=== PATIENT | male | born 1960 | race Caucasian/White ===

== ENCOUNTER 2018-07-06 06:20 | Day surgery (SDC) | payer MEDICAID ==
[2018-06-30 08:00] VITALS: BMI 36.2
--- NOTE | 2018-07-05 20:59 | HP ---
DATE OF EXAM: 07/05/2018 REASON FOR ADMISSION: Left heart catheterization possible angioplasty, abnormal stress test, unstable angina. BRIEF CLINICAL HISTORY: This is a 58-year-old male with past medical history significant for hypertension complaining of chest pain, dyspnea on exertion. After tobacco abuse half-a-pack a day, claimed that he walks 2 blocks, get chest pain, tightness in chest, and relieved by stopping No chest pain at rest. The patient went to see Dr. Matti Negron and had a stress test at [facility] dated 06/14/2018, that is abnormal, the patient is scheduled for elective cardiac cath, so the patient came for second opinion. After discussion, the patient is scheduled for elective cardiac cath possible angioplasty. PAST MEDICAL HISTORY: Significant for angina, hypertension. SOCIAL HISTORY: Active tobacco smoker, half-a-pack a day. CURRENT MEDICATIONS: The patient is taking isosorbide nitrate 30 mg daily, carvedilol 25 mg twice a day, baby aspirin 81 mg daily. RECENT CARDIAC WORKUP FOLLOWS: The patient had stress test dated 06/12/2018 that was Lexiscan and that showed abnormal myocardial perfusion study, large reversible perfusion defect in the apical anterior wall significant for ischemia, ejection fraction reported 77% dated 06/12/2018 signed on 06/14/[address] Negron. The patient had also echocardiography on 06/12/2018 at [facility] that showed borderline concentric LVH, ejection fraction 65% to 70%, grade 1 diastolic dysfunction, [id number] pulmonary hypertension, RV systolic pressure reported 56. REVIEW OF SYSTEMS: As per HPI. PHYSICAL EXAMINATION: VITAL SIGNS: Height of the patient 5 feet 11 inches, weight of the patient 260 pounds, body mass index 37 kg/m2. Temperature afebrile, heart rate 60, blood pressure 130/80. HEENT: PERRLA. Extraocular muscles are intact. NECK: Supple. No carotid bruits or thyromegaly. CHEST: Clear to auscultation. HEART: S1 and S2 regular. ABDOMEN: Soft. EXTREMITIES: Clubbing and cyanosis negative. LABORATORY DATA: Blood workup pending. IMPRESSION: This is a 58-year-old male with past medical history of hypertension, active tobacco abuse, abnormal stress test, large apical defect suggestive of ischemia. RECOMMENDATION: We will do the cardiac catheterization. Further recommendation after the cardiac catheterization. Trace tricuspid regurgitation noted. RV systolic pressure of 50. We will load with aspirin and Plavix, wait for the blood workup. If blood workup is okay, we will proceed for cardiac catheterization. Risks, benefits, and alternatives were discussed with the patient. The patient agreed. We will proceed for cardiac catheterization. Further recommendations after cardiac catheterization. Thank you Dr. Macdonald/ Shannan, for providing us the opportunity in taking care of the patient, Janay Jacome. Aline Ochoa MD JERSON
[2018-07-06 07:05] LABS: BASO # 0.09 K/mm3 (0.0-2.0); BASO % 1.2 % (0.0-3.0); EOS # 0.4 (0.0-0.7); EOS % 5.1 % (1.5-5.0); GRAN # 3.14 (1.4-6.5); HEMOGLOBIN 16.6 g/dL (14.0-18.0); LYMPH # 3.4 (1.2-3.4); LYMPH % 44.1 % (22.0-35.0); MEAN CELL VOLUME 83.7 fl (80.0-105.0); MEAN CORPUSCULAR HEMOGLOBIN 28.7 pg (25.0-35.0); MEAN CORPUSCULAR HGB CONC 34.3 g/dl (31.0-37.0); MEAN PLATELET VOLUME 10.3 fl (7.0-11.0); MONO # 0.7 (0.1-0.6); MONO % 8.6 % (1.0-6.0); RBC 5.78 10^6/uL (3.5-6.1); RED CELL DISTRIBUTION WIDTH 13.9 % (11.5-14.5); WHITE BLOOD COUNT 7.7 10^3/uL (4.5-11.0)
[2018-07-06 07:14] VITALS: O2SAT 96
[2018-07-06 07:15] LABS: INR 1.2; PARTIAL THROMBOPLASTIN TIME 37.8 Seconds (26.9-38.3); PROTHROMBIN TIME 13.6 SECONDS (9.4-12.5)
[2018-07-06 07:17] LABS: BLOOD UREA NITROGEN 15 mg/dL (7-21); CALCIUM 9.6 mg/dL (8.4-10.5); GFR NON-AFRICAN AMERICAN > 60; HDL CHOLESTEROL 23 mg/dL (29-60)
[2018-07-06 07:27] LABS: LDL CHOLESTEROL 83 mg/dL (0-129)
[2018-07-06] MEDS ORDERED: Nitroglycerin 50mg in D5W 50 MG/250 ML BOTTLE IV ONE (08:25)
[2018-07-06] MEDS ORDERED: Verapamil 2 ML ONE (08:25)
[2018-07-06] MEDS ORDERED: Iohexol 350 MG/100 ML VIAL ONE (08:25)
[2018-07-06] MEDS ORDERED: Iohexol 350mgl/ml 50 ML ONE (08:25)
[2018-07-06] MEDS ORDERED: Lidocaine 2% Inj (20ml) ONE (08:25)
[2018-07-06] MEDS ORDERED: Phenylephrine 10 mg/ml Inj ONE (08:26)
[2018-07-06] MEDS ORDERED: Midazolam 2 MG/2 ML VIAL ONE (08:49)
[2018-07-06] MEDS ORDERED: Eptifibatide 20 mg/10mL Inj IVP ONE (09:10)
[2018-07-06] MEDS ORDERED: Iodixanol 320 MG/ML 100 ML BOTTLE IV ONE (09:44)
[2018-07-06] MEDS ORDERED: Sodium Chloride 0.9% 1,000 ML IV SCH (10:30)
--- NOTE | 2018-07-06 11:00 | CPOSTOP ---
DATE: 07/06/2018 CARDIOVASCULAR LAB POSTPROCEDURE NOTE PHYSICIAN: Dr. Evin Ochoa. ELECTROLYSIS NEEDLE OPERATOR: BRUCE Saavedra. TYPE OF ANESTHESIA: Moderate conscious sedation, total 2 mg of Versed, 100 mg of fentanyl given periodically. Started 1 mg of Versed and 50 of fentanyl. PRE-PROCEDURE DIAGNOSES: Unstable angina, abnormal stress test and large anteroseptal defect ischemia. PROCEDURE PERFORMED: 1. Left heart catheterization. 2. Stenting of proximal to mid LAD. 3. Stenting of proximal diagonal one. 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 FINAL DIAGNOSIS: Multivessel coronary artery disease. POST PROCEDURE CONDITION: The patient's condition is stable. VASCULAR ACCESS SITE: Left radius. CLOSURE DEVICE: TR-band. RADIATION DOSE: 72774.9 milligray unit. TOTAL FLUORO TIME: 21.6 minutes. Aline Ochoa MD
--- NOTE | 2018-07-06 12:41 | CARD ---
APPROVED REPORT Date of service: 07/06/2018 EKG Measurement Heart [id number] <Conclusion> Normal sinus rhythm Normal ECG
[2018-07-06 13:57] LABS: BASO # 0.06 K/mm3 (0.0-2.0); BASO % 1.1 % (0.0-3.0); EOS # 0.3 (0.0-0.7); EOS % 5.7 % (1.5-5.0); GRAN # 2.32 (1.4-6.5); GRAN % 41.4 % (50.0-68.0); LYMPH # 2.5 (1.2-3.4); LYMPH % 44.7 % (22.0-35.0); MEAN CELL VOLUME 83.9 fl (80.0-105.0); MEAN CORPUSCULAR HEMOGLOBIN 28.6 pg (25.0-35.0); MEAN PLATELET VOLUME 10.3 fl (7.0-11.0); MONO # 0.4 (0.1-0.6); MONO % 7.1 % (1.0-6.0); RBC 5.6 10^6/uL (3.5-6.1); RED CELL DISTRIBUTION WIDTH 13.8 % (11.5-14.5); WHITE BLOOD COUNT 5.6 10^3/uL (4.5-11.0)
[2018-07-06 14:07] LABS: BLOOD UREA NITROGEN 13 mg/dL (7-21); CALCIUM 9.1 mg/dL (8.4-10.5); GFR NON-AFRICAN AMERICAN > 60
[2018-07-06] MEDS ORDERED: Magnesium Sulfate 2 gm/50 ml 2 GM/50 ML BAG IVPB ONE (14:52)
[2018-07-06] MEDS ORDERED: Magnesium Oxide 400 mg Tab UD PO STA (14:52)
[2018-07-06] MEDS ORDERED: Bacitracin 500 Units/gm Oint Foilpak UD ONE (15:22)
--- NOTE | 2018-07-06 15:41 | CARD ---
APPROVED REPORT Date of service: 07/06/2018 Procedure(s) performed: Left Heart Catheterization PTCA with Stenting of Proximal to Mid LAD with ELBA PTCA with Stenting of D1 with ELBA HISTORY The patient is a 58 year-old male with a history of : most recent EF: 69%. (EF Method: RADIONUCLIDE), hypertension , dyslipidemia , Angina after walking two Blocks and gets relief by stopping, had an abnormal stress test Large anterior perfusion defect on Nuclear scan.. INDICATION The indication(s) include : positive stress test. CASE TECHNIQUE The patient was brought electively to the Cardiac Catheterization Laboratory in a fasting state and was prepped and draped in a sterile manner. The left wrist was infiltrated with 2% Lidocaine subcutaneous anesthesia. A 6FR GLIDESHEATH ACCESS KIT sheath was inserted into the left radial artery without difficulty. Coronary angiography was performed using coronary diagnostic catheters. The left coronary system was accessed and visualized with a Diagnostic ,5 Fr JL 4 catheter. The right coronary system was accessed and visualized with a Diagnostic ,5 Fr JR 4 catheter. The left ventricle was accessed and visualized with a 5 Fr Pigtail 145 (Angled) catheter. Left ventricular/Aortic Valve gradient assessed on pullback. Left ventriculogram was performed in FRASER projection. Closure device was deployed with a Fr TR Band (Large) without any complications. The patient tolerated the procedure well and there were no complications associated with the procedure. Vessel Analysis The patient's coronary anatomy is co-dominant. The left main coronary artery is a large size vessel with diffuse calcification noted throughout this vessel and without significant stenosis. The left main bifurcates to the left anterior descending and circumflex. The left anterior descending artery is a medium size vessel with diffuse calcification noted throughout this vessel and with significant stenosis. There is a 95-99% stenosis Multiple in Proximal to Mid segment. The first diagonal branch is a medium size vessel with diffuse calcification noted throughout this vessel and with significant stenosis. There is a 95-99% stenosis Multiple in proximal segment. The second diagonal branch is a small size vessel with diffuse calcification noted throughout this vessel and without significant stenosis. The circumflex artery is a large size vessel with diffuse calcification noted throughout this vessel and without significant stenosis. There is a 60% stenosis in the mid segment. The first obtuse marginal branch is a small size vessel with diffuse calcification noted throughout this vessel and without significant stenosis. The second obtuse marginal branch is a medium size vessel with diffuse calcification noted throughout this vessel and without significant stenosis. The third obtuse marginal branch is a large size vessel with diffuse calcification noted throughout this vessel and without significant stenosis. The left posterior descending artery is a medium size vessel with diffuse calcification noted throughout this vessel and without significant stenosis. The right coronary artery is a small size vessel with diffuse calcification noted throughout this vessel and with significant stenosis. There is a 100% stenosis in the Proximal to mid segment. with bridge collaterals Left Ventricle The left ventricle is normal in size with normal contractility. There was no cardiomyopathy. The left ventricular ejection fraction is estimated to be 55-60%. The left ventricular end diastolic pressure is 15-18 mmHg. There was no gradient across the aortic valve upon pullback. PCI Technique Lesion Anticoagulation was achieved with Heparin and Integrellin two Bollouses. Percutaneous coronary intervention was performed on the mid left anterior descending artery segment. The lesion stenosis prior to intervention was 95-99% with SHERICE 1 flow. A 6 Fr XB 3 Guide Catheter was used to engage the ostium. A 0.014 x 182 cm Choice PT Extra Support Interventional Guidewire was used to cross the lesion. BALLOON DILATION A Balloon catheter 2.0 x 10 mm Sprinter RX was inserted and inflated up to 8.00atm for 26seconds. STENT DEPLOYMENT A drug-eluting stent STENT RESOLUTE OCTAVIO 2.25 X38 was inserted and inflated up to 12.00atm for 20seconds. Final angiography reveals 0 % stenosis with SHERICE 3 flow. PCI Technique Lesion 2 Percutaneous Coronary Intervention was performed on the proximal left anterior descending artery segment. The lesion stenosis prior to intervention was 95-99% with SHERICE 1 flow. A 6 Fr XB 3 Guide Catheter was used to engage the ostium. A 0.014 x 182 cm Choice PT Extra Support Interventional Guidewire was used to cross the lesion. BALLOON DILATION A Balloon catheter 2.0 x 10 mm Sprinter RX was inserted and inflated up to 14.00atm for 23seconds. STENT DEPLOYMENT A drug-eluting stent STENT RESOLUTE OCTAVIO 2.5 X18 was inserted and inflated up to 14.00atm for 20seconds. Final angiography reveals 0 % stenosis with SHERICE 3 flow. PCI Technique Lesion 3 Percutaneous Coronary Intervention was performed on the first diagnonal branch segment. The lesion stenosis prior to intervention was 95% with SHERICE 2 flow. A 6 Fr XB 3 Guide Catheter was used to engage the ostium. A Luge 182 Interventional Guidewire was used to cross the lesion. BALLOON DILATION A Balloon catheter 2.0 x 10 mm Sprinter RX was inserted and inflated up to 8.00atm for 22seconds. STENT DEPLOYMENT A drug-eluting stent STENT RESOLUTE OCTAVIO 2.25 X18 was inserted and inflated up to 12.00atm for 20seconds. Final angiography reveals 0 % stenosis with SHERICE 3 flow. Conclusion Multi Vessel CAD with Heavy atherosclerotic [place] In all coronaries. 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 Moderate Disease in Mid large CX. Collaterals from RCA to RCA( Bridge) and RCA to LAD. Preserved LV FX. EF-55-60%, EDP -15-18 mmof Hg. LAD and RCA are Not good target for CABG. Successful PTCA with ELBA Proximal to Mid LAD (two stents, Overlapping), and D1 with ELBA Recommendations Smoking Cessation Cardiac Rehabilitation ReferralDaily ASA with Plavix for at least one year Aggressive Medical TherapyCardiac Risk Reduction Program Weight Loss Reduction Program F/u Stress test in 6 months to ensure patency of stents in LAD/D1 and monitor progression of CAD in CX. CC: drs. Macdonald/ Shannan.
[2018-07-06 16:48] VITALS: BP 143/78; RESP 28; TEMP 98.4
[2018-07-06 18:03] VITALS: PULSE 84
--- NOTE | 2018-07-07 00:38 | CARD ---
APPROVED REPORT Date of service: 07/06/2018 EKG Measurement Heart [id number] TN [id number] <Conclusion> Normal sinus rhythm Non diagnostic Q waves in the inferior leads Minor NDSTT abnormalities Borderlinel ECG
== END 2018-07-06 18:15 | disposition home or self-care (01) ==
LOC: CATH 06:20 → 2RSO 10:21 → CATH 18:15
PROVIDERS: ATTEND Internal Medicine Cardiovascular Disease
DX: I25.110 Atherosclerotic heart disease of native coronary artery with unstable angina pectoris (principal); I10 Essential (primary) hypertension; E78.5 Hyperlipidemia, unspecified; I27.20 Pulmonary hypertension, unspecified; F17.200 Nicotine dependence, unspecified, uncomplicated; Z79.82 Long term (current) use of aspirin
CPT/HCPCS: 36415; 80048; 80061; 83735; 85025; 85175; 85610; 85730; 86850; 86900; 93005; 93458; 99152; 99153; C1725 ×2; C1769 ×3; C1874 ×3; C1887 ×3; C9600; J1327; J1644 ×2; J2250; J3010; J7030; J7040; Q9967 ×4